=== PATIENT | male | born 1950 | race Asian ===

== ENCOUNTER 2016-10-14 13:03 | Emergency (ER) | payer OTHER ==
[2016-10-14 13:11] VITALS: BP 151/99
--- NOTE | 2016-10-14 13:46 | ED ---
GI/ HPI - HPI Summary HPI Summary: 65M w/ BPH presents with urinary retention for a day. He drove 300 miles and said he was unable to urinate after. He denies any pain, nausea, fever, or vomtiing. He had a similar episode a month ago. He follows up with urology. - History of Current Complaint Chief Complaint: EDUrogenitalProblems Time Seen by Provider: 10/14/16 13:13 Stated Complaint: UNABLE TO URINATE Pain Intensity: 10 - Allergy/Home Medications Allergies/Adverse Reactions: Allergies Allergy/AdvReac Type Severity Reaction Status Date / Time No Known Allergies Allergy Verified 09/13/16 13:56 PMH/Surg Hx/FS Hx/Imm Hx Endocrine/Hematology History: Denies: Hx Diabetes History: Reports: Other Problems/Disorders - Enlarged Prostate Infectious Disease History: No Infectious Disease History: Denies: Traveled Outside the [place] in Last 30 Days - Family History Known Family History: Negative: Cardiac Disease, Hypertension, Diabetes - Social History Alcohol Use: None Hx Substance Use: No Substance Use Type: Reports: None Hx Tobacco Use: No Smoking Status (MU): Never Smoked Tobacco Review of Systems Negative: Fever Negative: Chest Pain Negative: Shortness Of Breath Positive: other - urinary retention All Other Systems Reviewed And Are Negative: Yes Physical Exam Triage Information Reviewed: Yes Vital Signs On Initial Exam: Initial Vitals Temp Pulse Resp BP Pulse Ox 98.2 F 118 20 151/99 99 10/14/16 13:08 10/14/16 13:08 10/14/16 13:08 10/14/16 13:08 10/14/16 13:08 Vital Signs Reviewed: Yes Skin: Positive: Warm, Dry ENT: Positive: Normal ENT inspection, Pharynx normal, TMs normal Respiratory/Lung Sounds: Positive: Clear to Auscultation, Breath Sounds Present Cardiovascular: Positive: Normal, RRR Abdomen Description: Positive: Nontender, Soft Bowel Sounds: Positive: Present Diagnostics - Vital Signs Vital Signs Temp Pulse Resp BP Pulse Ox 10/14/16 13:08 98.2 F 118 20 151/99 99 - Laboratory Lab Statement: Any lab studies that have been ordered have been reviewed, and results considered in the medical decision making process. Re-Evaluation - Re-Evaluation First Eval Re-Evaluation Time: 14:30 Change: Improved Comment: catheter in place and patient states ready to go and want catheter removed GIGU Course/Dx - Course Course Of Treatment: 65 M presents with urinary retention, has had similiar symptoms last month which resolved with catheter placement, when enterred room patient cath in place and states ready to go, wants catheter removed, urine looks clear with no blood in bag, will have follow up with urology, patient agrees with plan - Diagnoses Differential Diagnoses - Male: Ureteral Calculi, Urethritis, Other - urinary retention Provider Diagnoses: Urinary retention Discharge - Discharge Plan Condition: Good Disposition: HOME Patient Education Materials: Urinary Retention in Men (ED) Additional Instructions: Follow up with urology Take medication as prescribed by urology Return to ED if develop any new or worsening symptoms
== END 2016-10-14 14:18 | disposition home or self-care (01) ==
LOC: ED 13:03
DX: R33.9 Retention of urine, unspecified (principal)
CPT/HCPCS: 51701; 99281